=== PATIENT | male | born 1965 ===

== ENCOUNTER 2024-10-04 10:30 | Emergency (ER) | payer OTHER ==
[2024-10-04] MEDS: Fluorescein 1 MG Ophth Strip EYELF ONE (11:30)
[2024-10-04] MEDS: Tetracaine HCl/PF 0.5% 4 ML Bottle EYELF ONE (11:30)
== END 2024-10-04 11:52 | disposition home or self-care (01) ==
LOC: LB.ED 10:30
DX: S05.02XA Injury of conjunctiva and corneal abrasion without foreign body, left eye, initial encounter (principal); Z88.0 Allergy status to penicillin; X58.XXXA Exposure to other specified factors, initial encounter
CPT/HCPCS: 99283